=== PATIENT | female | born 1975 | race Caucasian/White ===

== ENCOUNTER 2018-08-26 09:25 | Outpatient (CLI) | payer BC, SELFPAY ==
[2018-08-26 16:00] LABS: FREE T4 1.63 ng/dL (0.76-1.46); TSH 0.05 uIU/mL (0.358-3.74)
[2018-08-27 16:51] LABS: T3,Free 3.9 pg/ml (2.8-5.3)
== END 2018-08-26 09:45 ==
PROVIDERS: PCP Student in an Organized Health Care Education/Training Program; Visit Provider Student in an Organized Health Care Education/Training Program
DX: E03.9 Hypothyroidism, unspecified (principal)
CPT/HCPCS: 36415; 84439; 84443; 84481

== ENCOUNTER 2018-09-23 00:14 | Outpatient (CLI) | payer BC, SELFPAY ==
--- NOTE | 2018-09-23 15:47 | DI.MAMMO_ITS ---
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 Comparison with prior examinations. Breast density D. No suspicious masses or microcalcifications are seen. There is no definite evidence of malignancy. IMPRESSION: Negative mammogram. Routine screening is recommended. Category I. MQSA ASSESSMENT OF FINDINGS: Negative. Category 1. Patient will receive a letter notifying them of these results. BI-RADS category D. The breasts are extremely dense, which lowers the sensitivity of mammography.
== END 2018-09-23 00:34 ==
PROVIDERS: PCP Student in an Organized Health Care Education/Training Program; Visit Provider Obstetrics & Gynecology Gynecology
DX: Z12.31 Encounter for screening mammogram for malignant neoplasm of breast (principal); Z80.3 Family history of malignant neoplasm of breast
CPT/HCPCS: 77063; 77067

== ENCOUNTER 2019-05-21 20:15 | Outpatient (REF) | payer BC, SELFPAY ==
[2019-05-21 20:10] LABS: TSH (W/Ref FT4) 2.54 uIU/mL (0.36-3.74)
[2019-05-22 16:58] LABS: T3,Free 3.2 pg/ml (2.8-5.3)
[2019-05-22 17:13] LABS: T3, Total 91 ng/dl (97-169)
[2019-05-23 13:33] LABS: FREE T4 1.42 ng/dL (0.76-1.46)
== END 2019-05-21 20:35 ==
LOC: LBN 20:15
PROVIDERS: Family Medicine; PCP Student in an Organized Health Care Education/Training Program; Visit Provider Student in an Organized Health Care Education/Training Program
DX: E03.9 Hypothyroidism, unspecified (principal); E05.00 Thyrotoxicosis with diffuse goiter without thyrotoxic crisis or storm; Z92.3 Personal history of irradiation
CPT/HCPCS: 84439; 84443; 84480; 84481

== ENCOUNTER 2019-07-21 12:42 | Outpatient (CLI) | payer BC, SELFPAY ==
--- NOTE | 2019-07-21 15:30 | DI.RAD_ITS ---
EXAM: XR KNEE RT 4V AP,LAT,CHARISSA,PAT INDICATION: knee pain M25.561. COMPARISON: No exams were available for comparison TECHNIQUE: 2D digital imaging was performed. FINDINGS: There is spurring of the medial femoral tibial joint and mild joint space narrowing. The lateral fe moral tibial joint space is well maintained. There is spurring at the articular aspect of the patell a and narrowing of lateral patellofemoral joint of moderate degree. No joint effusion is visible. IMPRESSION: Moderate degenerative changes of the medial femoral tibial joint and lateral patellofemoral joint.
--- NOTE | 2019-07-21 15:30 | DI.RAD_ITS ---
EXAM: XR KNEE LT 4V AP,LAT,CHARISSA,PAT INDICATION: knee pain M25.562. COMPARISON: No exams were available for comparison TECHNIQUE: 2D digital imaging was performed. FINDINGS: There is gaud-wf-kwmtllru narrowing of the of the patellofemoral joint and mild periarticular spurri ng. No joint effusion is seen. There is mild narrowing of the medial femoral tibial joint space. IMPRESSION: Moderate degenerative changes of the patellofemoral joint.
== END 2019-07-21 13:02 ==
PROVIDERS: PCP Student in an Organized Health Care Education/Training Program; Visit Provider Student in an Organized Health Care Education/Training Program
DX: M25.561 Pain in right knee (principal); M25.562 Pain in left knee; M17.0 Bilateral primary osteoarthritis of knee
CPT/HCPCS: 73564

== ENCOUNTER 2019-10-16 08:48 | Outpatient (CLI) | payer BC, SELFPAY ==
[2019-10-16 09:15] LABS: HCT 39.7 % (36.0-46.0); HGB 13.2 g/dL (12.0-15.5); Mean Corp. HGB Concentration 33.2 g/dL (32.0-36.0); Mean Corpuscular Volume 96.4 fL (80-95); Mean Platelet Volume 9.8 fL (8.0-11.0); Platelet Count 314 x1000/uL (130-400); RBC 4.12 m/cumm (4.00-5.20); RBC Distribution Width 11.9 % (11.7-14.6); White Blood Cell Count 6.52 k/cumm (4.4-10.8)
[2019-10-16 10:20] LABS: ALT 19 U/L (14-59); AST 14 U/L (15-37); Albumin 3.8 g/dL (3.4-5.0); Alkaline Phosphatase 55 U/L (46-116); Anion Gap 4.7 mmol/L (3-11); BUN 15 mg/dL (7-18); Bilirubin, Total 0.5 mg/dL (0.2-1.0); CO2 29.3 mmol/L (21.0-32.0); Chloride 105 mmol/L (98-107); Glucose 89 mg/dL (74-106); Potassium 4.5 mmol/L (3.5-5.1); Sodium 139 mmol/L (136-145); TSH (W/Ref FT4) 2.35 uIU/mL (0.36-3.74)
[2019-10-18 17:44] LABS: FREE T4 1.28 ng/dL (0.76-1.46)
== END 2019-10-16 09:08 ==
PROVIDERS: PCP Student in an Organized Health Care Education/Training Program; Visit Provider Student in an Organized Health Care Education/Training Program
DX: E86.0 Dehydration (principal); R53.83 Other fatigue; Z79.1 Long term (current) use of non-steroidal anti-inflammatories (NSAID); Z83.3 Family history of diabetes mellitus; E03.9 Hypothyroidism, unspecified; E05.00 Thyrotoxicosis with diffuse goiter without thyrotoxic crisis or storm; H83.09 Labyrinthitis, unspecified ear; Z86.2 Personal history of diseases of the blood and blood-forming organs and certain disorders involving the immune mechanism
CPT/HCPCS: 36415; 80053; 85027; 84436; 84439; 84443

== ENCOUNTER 2019-11-20 01:44 | Outpatient (CLI) | payer BC, SELFPAY ==
--- NOTE | 2019-11-20 15:30 | DI.MAMMO_ITS ---
EXAM: MG MAMMO SCREENING CLINICAL HISTORY: screening TECHNIQUE: Bilateral full field digital CC and MLO mammographic images were obtained with 3D tomosyn thesis and utilizing computer aided detection (CAD). COMPARISON: 2011 to 2018 FINDINGS: Masses/Architectural Distortion: None seen. Microcalcifications: No suspicious pleomorphic-type are seen. Skin Thickening/Nipple Retraction: None. IMPRESSION: 1. No significant interval change with no specific features of malignancy noted. 2. Unless there is more urgent need, screening mammography is recommended, as per [place] [employer] guidelines. BI-RADS Cat 1 - Negative Breast Density - Category D - Extremely dense The mammogram demonstrates the patient's breast tissue is dense. Dense breast tissue is very common a nd is not abnormal but dense breast tissue can make it harder to find cancer on a mammogram. Also, de nse breast tissue may increase their breast cancer risk. This information about the result of the [facility] mogram report was provided to the patient to raise their awareness. Use this report when you speak wi th the patient about their risks for breast cancer, which includes their family history. At that time , you may recommend for more screening tests (Ultrasound or MRI) as they might be useful based on the ir risk. A negative radiographic report should not delay biopsy if a dominant or clinically suspicious mass is present. Up to ten percent of cancers are not identified on mammography. A negative report may reinforce clinical impression. Adenosis and dense breasts may obscure an underlying neoplasm. False positive reports average 6 to 10%. Patient will receive a letter notifying them of these results.
== END 2019-11-20 02:04 ==
PROVIDERS: PCP Student in an Organized Health Care Education/Training Program; Visit Provider Nurse Practitioner Women's Health
DX: Z12.31 Encounter for screening mammogram for malignant neoplasm of breast (principal)
CPT/HCPCS: 77063; 77067

== ENCOUNTER 2020-04-07 02:23 | Outpatient (CLI) | payer BC, SELFPAY ==
--- NOTE | 2020-04-07 08:30 | DI.US_ITS ---
EXAM: US BREAST RT LIMITED CLINICAL HISTORY: localized pain/tenderness @ outer right breast, ? mass, n64.4 TECHNIQUE: Ultrasound right breast performed using standard protocol. COMPARISON: No exams were available for comparison FINDINGS: No solid or cystic masses, hypoechoic foci, areas of abnormal shadowing, or areas of skin thickening in the area of pain as described by the patient. IMPRESSION: No sonographically suspicious finding. DATA REPOSITORY:
== END 2020-04-07 02:43 ==
PROVIDERS: PCP Student in an Organized Health Care Education/Training Program; Visit Provider Student in an Organized Health Care Education/Training Program
DX: N64.4 Mastodynia (principal)
CPT/HCPCS: 76642

== ENCOUNTER 2020-08-31 02:58 | Outpatient (CLI) | payer BC, SELFPAY ==
[2020-08-31 16:44] LABS: FREE T4 1.42 ng/dL (0.76-1.46)
[2020-08-31 16:48] LABS: TSH 0.17 uIU/mL (0.36-3.74)
[2020-08-31 21:41] LABS: T3, Total 125 ng/dL (97-169)
== END 2020-08-31 03:18 ==
PROVIDERS: PCP Student in an Organized Health Care Education/Training Program; Visit Provider Student in an Organized Health Care Education/Training Program
DX: E03.9 Hypothyroidism, unspecified (principal); E05.00 Thyrotoxicosis with diffuse goiter without thyrotoxic crisis or storm; G47.9 Sleep disorder, unspecified; F41.9 Anxiety disorder, unspecified
CPT/HCPCS: 36415; 84439; 84443; 84480

== ENCOUNTER 2020-10-25 16:13 | Outpatient (REF) | payer BC, SELFPAY ==
--- NOTE | 2020-10-25 16:00 | PAPFT_PTH ---
PATIENT: Valery Giles LOC: [facility] U#:[id number] AGE/SX: 45/F ROOM: RE10/25/[address]: BRENNEN Walker : 1975 BED: DIS: 10/25/2020 SPEC #: [id number] RECD: 10/25/20 17:51 STATUS: VASQUEZ REQ #: [id number] MICHELLE: 10/25/20 16:[address]: Nikole Gamez DEPT: [facility] Cytology RECD BY: Renu Mosley ENTERED: 10/25/20 17:52 SP TYPE: PAPFT OTHR DR: Virginia Lauren, Tissues: 1 - CX/ENDOCX FOR PAP SMEARS Procedures: PAP THIN PREP/UVM Screening HPV DNA PROBE Comments: [id number]
== END 2020-10-25 16:14 | disposition home or self-care (01) ==
LOC: LBN 16:13
PROVIDERS: PCP Student in an Organized Health Care Education/Training Program; Visit Provider Nurse Practitioner Family
DX: Z12.4 Encounter for screening for malignant neoplasm of cervix (principal); Z11.51 Encounter for screening for human papillomavirus (HPV)
CPT/HCPCS: 88142; 87624

== ENCOUNTER 2020-11-22 01:59 | Outpatient (CLI) | payer BC, SELFPAY ==
--- NOTE | 2020-11-22 15:22 | DI.MAMMO_ITS ---
EXAM: MG MAMMO SCREENING CLINICAL HISTORY: screening. TECHNIQUE: Bilateral full field digital CC and MLO mammographic images were obtained with 3D tomosyn thesis and utilizing computer aided detection (CAD). COMPARISON: 2011 through 2019 FINDINGS: Masses/Architectural Distortion: None seen. Microcalcifications: No suspicious pleomorphic-type are seen. Skin Thickening/Nipple Retraction: None. IMPRESSION: 1. No significant interval change with no specific features of malignancy noted. 2. Unless there is more urgent need, annual screening mammography is recommended, as per [place] [employer] guidelines. BI-RADS Category 1-negative Breast Density - Category D - extremely dense Breast Density Category D: The mammogram demonstrates the patient's breast tissue is dense. Dense wilson ast tissue is very common and is not abnormal but dense breast tissue can make it harder to find canc er on a mammogram. Also, dense breast tissue may increase their breast cancer risk. This information about the result of the mammogram report was provided to the patient to raise their awareness. Use th is report when you speak with the patient about their risks for breast cancer, which includes their f amily history. At that time, you may recommend for more screening tests (Ultrasound or MRI) as they m ight be useful based on their risk. A negative radiographic report should not delay biopsy if a dominant or clinically suspicious mass is present. Up to ten percent of cancers are not identified on mammography. A negative report may reinforce clinical impression. Adenosis and dense breasts may obscure an underlying neoplasm. False positive reports average 6 to 10%.
== END 2020-11-22 02:19 ==
PROVIDERS: PCP Student in an Organized Health Care Education/Training Program; Visit Provider Nurse Practitioner Family
DX: Z12.31 Encounter for screening mammogram for malignant neoplasm of breast (principal)
CPT/HCPCS: 77063; 77067

== ENCOUNTER 2020-12-29 03:16 | Outpatient (CLI) | payer BC, SELFPAY ==
[2020-12-29 16:11] LABS: TSH (W/Ref FT4) 1.96 uIU/mL (0.36-3.74)
[2020-12-31 17:17] LABS: T3,Free 3.3 pg/mL (2.8-5.3)
[2021-01-02 18:21] LABS: FREE T4 1.43 ng/dL (0.76-1.46)
== END 2020-12-29 03:17 | disposition home or self-care (01) ==
LOC: LBO 03:17
PROVIDERS: PCP Student in an Organized Health Care Education/Training Program; Visit Provider Student in an Organized Health Care Education/Training Program
DX: E03.9 Hypothyroidism, unspecified (principal); E05.00 Thyrotoxicosis with diffuse goiter without thyrotoxic crisis or storm; R53.83 Other fatigue; F33.9 Major depressive disorder, recurrent, unspecified
CPT/HCPCS: 36415; 84439; 84443; 84481

== ENCOUNTER 2021-05-16 03:09 | Outpatient (CLI) | payer BC, SELFPAY ==
[2021-05-16 13:22] LABS: Source Nasal/Nares
[2021-05-16 16:07] LABS: COVID-19 PCR Negative (Negative)
== END 2021-05-16 03:10 | disposition home or self-care (01) ==
LOC: LBO 03:10
PROVIDERS: PCP Student in an Organized Health Care Education/Training Program; Visit Provider Surgery
DX: Z20.822 Contact with and (suspected) exposure to COVID-19 (principal); Z01.818 Encounter for other preprocedural examination
CPT/HCPCS: 87635

== ENCOUNTER 2021-05-17 08:53 | Day surgery (SDC) | payer BC, SELFPAY ==
[2021-05-17 09:18] VITALS: BP 114/72; PULSE 70; RESP 16; TEMP 36.8; O2SAT 98
--- NOTE | 2021-05-17 09:41 | W.ANESPRE ---
General Info Date of Service Date Performed: 05/17/21 Height: 5 ft 4 in Weight: 61 kg Body Mass Index (BMI): 23.1 Surgical Procedure: Operation Date: 05/17/21 10:05 Proposed Procedures Side Surgeon zander Dutta, Meds Allergies and Home Medications Allergies Allergy/AdvReac Type Severity Reaction Status Date / Time No Known Allergies Allergy Verified 05/17/21 09:12 Home Medication Medication Instructions Recorded omalizumab [Xolair] 150 mg SQ 28 days vial 04/25/18 cetirizine 10 mg tablet 20 mg PO DAILY tab 12/24/18 epinephrine 0.3 mg/0.3 mL 0.3 mg IM ONCE 04/08/20 injection, auto-injector ibuprofen 600 mg tablet 600 mg PO TID #60 tab 10/28/20 docusate sodium 100 mg capsule 100 mg PO DAILY #90 cap 02/09/21 norethindrone acetate 1 mg-ethinyl 1 tab PO DAILY #63 tab 04/20/21 estradiol 20 mcg tablet levothyroxine 112 mcg tablet 112 mcg PO DAILY #90 tab 05/06/21 bisacodyl 5 mg tablet,delayed 5 mg PO ONCE #4 tab 05/10/21 release lorazepam 0.5 mg tablet 0.5 mg PO PRN #20 tab MDD 2 tabs 05/10/21 polyethylene glycol 3350 17 238 g PO ONCE #238 g 05/10/21 gram/dose oral powder Current Visit Medications: Current Medications Generic Name Dose Route Start Last Admin Trade Name Freq PRN Reason Stop Dose Admin Hyoscyamine Sulfate 0.125 mg 05/16/21 21:45 Hyoscyamine 0.125 Mg Sl/Oral/Chew SL DIRECTED PRN Ringer's Solution 1,000 mls @ 80 mls/hr 05/17/21 06:00 IV 06/15/21 23:59 [facility] IV Miscellaneous Supplies 1 each 05/17/21 06:00 Iv Access IV 06/15/21 23:59 DIRECTED RIO Ondansetron HCl 4 mg 05/16/21 21:45 Ondansetron 4 Mg/2 Ml Vial IVP Q4H PRN PRN Nausea / Vomiting Sodium Chloride 0 ml 05/17/21 06:00 Normal Saline Flush 10 Ml Syr IV 06/15/21 23:59 PRN PRN Sodium Chloride 0 ml 05/17/21 06:00 Normal Saline 10 Ml Vial IJ 06/15/21 23:59 DIRECTED PRN Sterile Water 0 ml 05/17/21 06:00 Water,Injection,Sterile 10 Ml Vial IJ 06/15/21 23:59 DIRECTED PRN PFSH Active Problems Active Problems: Problem Status Onset Code Constipation K59.00 Abdominal bloating R14.0 Breast tenderness N64.4 Mood swing R45.86 Menopausal symptoms N95.1 Chronic urticaria L50.8 Major depressive disorder, recurrent, unspecified F33.9 Pectoralis muscle strain S29.011A Breast pain N64.4 Insomnia G47.00 Knee pain, bilateral M25.561, M25.562 Varicose veins of right lower extremity with pain 04/23/18 I83.811 Varicose veins of both lower extremities with pain 04/23/18 I83.813 Postnasal drip 06/22/14 R09.82 Panic attack 04/23/18 F41.0 Oral contraceptive use 02/06/17 Z30.41 Hypothyroidism 05/29/14 E03.9 Graves' disease 04/23/18 E05.00 Fatigue 04/23/18 R53.83 Family history of breast cancer in female 01/25/16 Z80.3 Encounter for gynecological examination 02/06/17 Z01.419 Other disorders of Eustachian tube 09/08/13 H69.80 Other specified contraceptive management 12/17/12 Z30.8 Anxiety 04/23/18 F41.9 Angioedema 04/25/18 T78.3XXA Allergic rhinitis 06/22/14 J30.9 Medical History Medical History Abdominal bloating Breast pain Breast tenderness rt breast, seems ~ bruise within breast tissue (vs pec mm) Constipation Hypothyroid Insomnia Hx Trazadone .. stopped 2' H/A. 02/2020 Menopausal symptoms Pectoralis muscle strain Probable Dx, but radiation of pain is atypical. [ ] PT, US Postnasal drip (06/22/14) Varicose veins of right lower extremity with pain (04/23/18) Surgical History Surgical History section protracted labor. Tobacco Smoking/Tobacco Use Status: Never Alcohol Alcohol Intake: current Alcohol intake frequency: holidays/special occasions only Substance Use Substance use: Never Substance use type: does not use Prental History History 2 Para Hx # Term Pregnancies 1 Multiple births Hx # Pregnancies Ectopic pregnancies AB induced Hx Number of Living Children AB spontaneous Vital Signs and Lab Results Vital Signs Most Recent Vital Signs in EMR: Most Recent Vital Signs Temp Pulse Resp BP Pulse Ox 36.8 C 70 16 114/72 98 05/17/21 09:18 05/17/21 09:18 05/17/21 09:18 05/17/21 09:18 05/17/21 09:18 Lab Results Blood Type / Crossmatch: No Data to Display Complete Blood Count: No Data to Display Complete Metabolic Panel: No Data to Display Liver Function Panel: No Data to Display Coagulation Panel: No Data to Display Cardiac Panel: No Data to Display Arterial Blood Gas: No Data to Display Venous Blood Gas: No Data to Display Pancreas Panel: No Data to Display Thyroid Panel: No Data to Display Infectious Disease: Coronavirus (COVID-19)(PCR) Negative (Negative) 05/16/21 08:45 05/16/21 Coronavirus 2019 Source Nasal/Nares 05/16/21 08:45 05/16/21 Blood Cultures: No Data to Display Toxicology Panel: No Data to Display Panel: No Data to Display Anesthesia Assessment and Plan Anesthesia History Personal History: No History of Anesthesia Complications Family History: No Family History of Anesthesia Complications Exercise Tolerance Exercise Tolerance: Metabolic Equivalents>4 Pertinent Negatives Pertinent Negatives: No Symptoms of GERD Cardiac & Pulmonary Exam Cardiac Exam: Normal S1/S2 Heart Sounds Pulmonary Exam: Clear Bilateral Breath Sounds Airway Exam Known Difficult Airway: No Mallampati Class: 2 Mouth Opening: Normal (> 3cm) Thyromental Distance: Greater than 3 cm Neck Range of Motion: Full ROM Neck Circumference: Normal Teeth Condition: Normal Dentition ASA Classification ASA Score: ASA 2 Emergency Case?: No NPO Status NPO Status: NPO Clears >2 hours, Solids >8 hours Status Status: Negative HCG Anesthesia Plan Resuscitation Status: Full Code Anesthesia Technique: General Anesthesia Airway Planned: Natural Airway Monitors Used: Standard Monitors
[2021-05-17] MEDS: Lactated Ringers 1,000 ML 80 ML IV (09:42)
[2021-05-17 10:31] VITALS: BMI 23.1
--- NOTE | 2021-05-17 10:50 | BOWEL_PTH ---
PATIENT: Valery Giles LOC: [facility] U#:[id number] AGE/SX: 45/F ROOM: RE05/17/[address]: Breanna Dutta : 1975 BED: DIS: 05/17/2021 SPEC #: [id number] RECD: 05/17/21 12:39 STATUS: VASQUEZ REQ #: [id number] MICHELLE: 05/17/21 10:[address]: Breanna Dutta DEPT: Surgical Specimen RECD BY: Renu Mosley ENTERED: 05/17/21 12:40 SP TYPE: Bowel OTHR DR: Virginia Lauren DO Tissues: 1 - BIOPSY BOWEL 2 - BIOPSY BOWEL 3 - BIOPSY BOWEL 4 - BIOPSY BOWEL Procedures: GROSS AND MICRO LEVEL 4 Comments: [id number]
[2021-05-17 11:04] VITALS: BP 107/72; PULSE 70; RESP 14; TEMP 37; O2SAT 100
--- NOTE | 2021-05-17 11:07 | W.COLOREPORT ---
Date of service: 05/17/21 Time of Service: 11:07 Colonoscopy Report Date of procedure: 05/17/21 Pre-op diagnosis general: family hx of crc Post-op diagnosis procedure note: other (IBS-C) Procedure: bx cold forcep Surgeon: Breanna Dutta Anesthesia Type: General LMA/ETT Estimated blood loss (mL): 1 Pathology: other Complications: None Disposition: same day Prep: Miralax/Dulcolax Retraction Time: 9 Procedure Description: After informed consent was obtained the patient was taken to the procedure room and placed in a left decubitous position. Monitors were applied and a time out was done. The patients name, date of , procedure, allergies to medications and metal in their body was reviewed. The patient was then sedated. Once sedated and comfortable a rectal exam was done. External exam was normal. Internal exam revealed a normal sphincter tone and no palpable masses. The scope was then introduced and retrofelexed. no internal hemorrhoids were identified. The scope was then advanced to the cecum w/ difficulty. The TI and appendiceal orifice were identified. The prep was good. The scope was then slowly retracted over 9 minutes back into the rectum. There are no polyps/AVM's or diverticula. The scope was removed and the patient was woken up and taken back to Same day surgery in stable condition. there are no polyps, AVMs, or diverticula visualized today. Biopsies were taken of the cecum, showed signs of chronic laxative use. Bx are taken at cecum, 50 cm, & rectum w/ a cold biting forcepts. All specimens are retrieved and no bleeding noted. There are no anatomic abnormalities. The patient tolerated the procedure well and there were no immediate complications. Follow up: The patient should follow up in 5 years unless they develop changes in bowel habits or other new gastrointestinal complaints.
--- NOTE | 2021-05-17 11:08 | PDOC.DSDIS_ITS ---
Discharge Plan Disposition Patient Disposition: HOME Condition: Good Discharge Details Reason For Visit: colon scope Attending Provider: Breanna Dutta Primary Care Provider: Virginia Lauren Home Meds and New Rx's Prescriptions: Continued ibuprofen 600 mg tablet 600 mg PO TID Qty: 60 RF: 1 lorazepam 0.5 mg tablet 0.5 mg PO PRN MDD 2 tabs Qty: 20 RF: 1 docusate sodium [Colace] 100 mg capsule 100 mg PO DAILY Qty: 90 RF: 0 Xolair 150 MG recon soln 150 mg SQ 28 days RF: 0 cetirizine [Zyrtec] 10 mg tablet 20 mg PO DAILY RF: 0 epinephrine [EpiPen] 0.3 mg/0.3 mL auto-injector 0.3 mg IM ONCE RF: 0 norethindrone ac-eth estradiol 1-20 mg-mcg tablet 1 tab PO DAILY Qty: 63 RF: 4 levothyroxine 112 mcg tablet 112 mcg PO DAILY Qty: 90 RF: 0 Discontinued bisacodyl [Dulcolax (bisacodyl)] 5 mg tablet,delayed release (DR/EC) 5 mg PO ONCE Qty: 4 RF: 0 polyethylene glycol 3350 17 gram/dose powder 238 g PO ONCE Qty: 238 RF: 0 Discharge Instructions Additional Instructions: DSU Colonoscopy Post- Op Instructions Instructions for Everyone who is given Anesthesia: For your safety, please do the following for the next twenty-four (24) hours: *Do Not operate a motor vehicle (car, truck, motorcycle, etc.) *Do Not drink alcoholic beverages or use any recreational drugs for the first 24 hours or while taking pain medications. The medications in your body may have a reaction that can be dangerous. *Do Not make any important decisions or sign any important papers. Findings: normal colon IBS-C Follow up: repeat scope in 5yrs time 1. No lifting over 20 pounds or strenuous activity for the first 24 hours after your procedure. After 24 hours there are no restrictions on your activity but you may feel fatigued for a few days. 2. After you arrive home you may have a light meal and return to your normal diet as you can tolerate it without feeling sick to your stomach. 3. You may have a bloated, gaseous feeling in your belly (abdomen) after a colonoscopy. Passing gas and belching will help. Walking or lying down on your left side with your knees flexed may relieve the discomfort. Call the office at [phone] (Office) or [phone] (Hospital) right away if you notice any of the following: a.Vomiting of blood or ?coffee ground stools?. b.Rectal bleeding 1Tbsp, blood clots or continuous bleeding. c.Severe belly (abdominal) pain. d.A hard distended belly (abdomen) and an inability to pass gas. 4. Please don?t expect to have a normal BM (bowel movement) for 2-3 days after your procedure. 5. If there are questions regarding the findings of your procedure, please contact your doctor 6. If you are unable to contact your doctor with a problem, contact the hospital at [phone]. 7. Continue all your regular medications unless directed otherwise. I understand the above instructions and have no questions. Signature of Patient or Adult Escort Name of Responsible Adult Escort Signature of Nurse Date/Time Activity:: see above Diet:: see above Discharge Orders Discharge Orders: Discharge Order (Routine); Ordered 05/16/21 Ordered By: Breanna Dutta DS: Diagnosis Discharge Diagnosis (1) Irritable bowel syndrome with constipation: Status: Acute
--- NOTE | 2021-05-17 11:08 | W.ANESPOSTOP ---
Postoperative Evaluation Date, Time and Location Date Performed: 05/17/21 Time Performed: 11:09 Patient Location: PACU Vital Signs Most Recent Imported Vital Signs: Most Recent Vital Signs Temp Pulse Resp BP Pulse Ox 36.8 C 70 16 114/72 98 05/17/21 09:18 05/17/21 09:18 05/17/21 09:18 05/17/21 09:18 05/17/21 09:18 Most Recent Manually Entered Vital Signs: Adult Blood Pressure: 107/72 Heart Rate: 65 Respirations: 14 Oxygen Saturation (%): 98 Temperature (C): 37 C Pain Score (0-10 Scale): 0 Pain Score Most Recent Pain Score: Most Recent Pain Score Pain Level 0 05/17/21 09:18 Assessment Mental Status: Awake (Alert & Oriented to Patient Baseline) Airway and Respiratory Function: Patent airway with normal (patient baseline) respiratory exam Cardiovascular Function: Hemodynamically Stable Hydration Status: Adequately Hydrated Nausea & Vomiting: No Nausea or Vomiting Pain: Pt. Denies Any Pain Peripheral Nerve Block: Patient did not receive a nerve block
[2021-05-17 11:10] VITALS: BP 107/72; PULSE 65; RESP 14; TEMPC 37; O2SAT 98
[2021-05-17 11:32] VITALS: BP 98/65; PULSE 57; RESP 16; TEMP 36.8; O2SAT 100
== END 2021-05-17 12:18 | disposition home or self-care (01) ==
PROVIDERS: PCP Student in an Organized Health Care Education/Training Program; Visit Provider Surgery
PROC: 0DJD8ZZ Inspection of Lower Intestinal Tract, Via Natural or Artificial Opening Endoscopic (ICD-10-PCS; CPT 45378; principal; 2021-05-17 10:00)
DX: Z12.11 Encounter for screening for malignant neoplasm of colon (principal); Z80.0 Family history of malignant neoplasm of digestive organs; K58.1 Irritable bowel syndrome with constipation
CPT/HCPCS: 45380; 88305; J2001

== ENCOUNTER 2021-06-02 03:10 | Outpatient (CLI) | payer BC, SELFPAY ==
[2021-06-02 17:11] LABS: ALT 25 U/L (14-59); AST 15 U/L (15-37); Alkaline Phosphatase 58 U/L (46-116); Anion Gap 8.9 mmol/L (3-11); BUN 11 mg/dL (7-18); Bilirubin, Total 0.2 mg/dL (0.2-1.0); CO2 26.1 mmol/L (21.0-32.0); CREATININE 0.7 mg/dL (0.55-1.02); Calcium 9.1 mg/dL (8.5-10.1); Chloride 105 mmol/L (98-107); Glucose 97 mg/dL (74-106); Potassium 3.9 mmol/L (3.5-5.1); Sodium 140 mmol/L (136-145); TSH (W/Ref FT4) 5.64 uIU/mL (0.36-3.74); Total Protein 7.5 g/dL (6.4-8.2)
[2021-06-02 17:28] LABS: FREE T4 1.19 ng/dL (0.76-1.46)
[2021-06-02 17:41] LABS: Calculated LDL 82 mg/dL (<100); Cholesterol 188 mg/dL (<200); HDL Cholesterol 68 mg/dL (40-60); Triglyceride 193 mg/dL (<150)
[2021-06-03 16:46] LABS: T3,Free 2.5 pg/mL (2.8-5.3)
== END 2021-06-02 03:11 | disposition home or self-care (01) ==
LOC: LBO 03:10
PROVIDERS: PCP Student in an Organized Health Care Education/Training Program; Visit Provider Student in an Organized Health Care Education/Training Program
DX: Z00.00 Encounter for general adult medical examination without abnormal findings (principal); E03.9 Hypothyroidism, unspecified; R53.83 Other fatigue; E46 Unspecified protein-calorie malnutrition; E86.0 Dehydration; R14.0 Abdominal distension (gaseous); K59.00 Constipation, unspecified; Z13.220 Encounter for screening for lipoid disorders
CPT/HCPCS: 36415; 80053; 80061; 83735; 84439; 84443; 84481

== ENCOUNTER 2021-06-14 04:24 | Outpatient (CLI) | payer BC, SELFPAY ==
[2021-06-14 16:43] LABS: Abs Immature Grans 0.04 10^3/uL (0.0-0.06); Absolute Eosinophil Count 1.37 10^3/uL (0.0-0.7); Absolute Monocyte Count 0.58 10^3/uL (0.1-0.8); Absolute Neutrophil Count 5.74 10^3/uL (1.2-6.7); Eosinophils % 13.1; HCT 38.2 % (36.0-46.0); HGB 12.8 g/dL (11.2-15.7); Immature Grans % 0.4; Lymphocytes % 24.9; MCHC 33.5 % (32.0-36.0); MCV 98.5 fL (80-95); MPV 10.3 fL (8.0-11.0); Monocytes % 5.6; Nucleated RBC 0 %; Platelet Count 271 10^3/uL (130-400); RBC 3.88 10^6/uL (3.93-5.22); RDW 11.6 % (11.7-14.6); RDW-SD 42.1 fL; WBC 10.43 10^3/uL (4.4-10.8)
[2021-06-14 18:21] LABS: Folate 19.2 ng/mL (8.6-20.0); Magnesium 1.9 mg/dL (1.8-2.4); TSH 9.82 uIU/mL (0.36-3.74); Vitamin B12 612 pg/mL (193-986)
[2021-06-14 18:37] LABS: FREE T4 0.98 ng/dL (0.76-1.46)
[2021-06-15 17:26] LABS: T3,Free 1.8 pg/mL (2.8-5.3)
[2021-06-15 17:43] LABS: T3, Total 96 ng/dL (97-169)
[2021-06-16 09:37] LABS: IgA 246 mg/dL (85-499); IgG 1310 mg/dL (610-1,616); IgM 67 mg/dL (35-242)
[2021-06-17 09:45] LABS: DHEA Sulfate 107 ug/dL (75-410)
[2021-06-17 10:00] LABS: IgE 77 IU/mL (<158)
[2021-06-21 16:00] LABS: Histamine Plasma 0.84 ng/mL (0-1.0)
== END 2021-06-14 04:25 | disposition home or self-care (01) ==
LOC: LBO 04:25
PROVIDERS: PCP Student in an Organized Health Care Education/Training Program; Visit Provider Naturopath
DX: R53.83 Other fatigue (principal); G47.00 Insomnia, unspecified
CPT/HCPCS: 36415; 82627; 82784; 82607; 82746; 82785; 83088; 83735; 84207; 84439; 84443; 84480; 84481; 85025

== ENCOUNTER 2021-06-23 03:17 | Outpatient (CLI) | payer BC, SELFPAY ==
[2021-06-23 09:21] LABS: Vitamin D 25 Total 49.2 ng/mL (30-100)
[2021-06-28 12:22] LABS: Pyridoxal 5-Phosphate (PLP), P 8 mcg/L (5-50)
== END 2021-06-23 03:18 | disposition home or self-care (01) ==
LOC: LBO 03:17
PROVIDERS: PCP Student in an Organized Health Care Education/Training Program; Visit Provider Naturopath
DX: E55.9 Vitamin D deficiency, unspecified (principal); G47.00 Insomnia, unspecified; R53.83 Other fatigue; Z88.9 Allergy status to unspecified drugs, medicaments and biological substances
CPT/HCPCS: 36415; 82306; 84207

== ENCOUNTER 2021-06-28 01:02 | Outpatient (CLI) | payer BC, SELFPAY ==
--- NOTE | 2021-06-28 08:45 | DI.RAD_ITS ---
Exam(s) XR ABDOMEN FLAT UPRIGHT EXAM: XR ABDOMEN FLAT UPRIGHT CLINICAL HISTORY: r/o colon path; eval constipation,ABD BLOATING,K59.00,R14.0. TECHNIQUE: 2D digital imaging was performed. COMPARISON: No exams were available for comparison FINDINGS: Supine and upright views of the abdomen reveal no evidence of bowel obstruction or free intraperitone al air. Phleboliths are noted in left side of the pelvis. The stomach is not distended. Moderate i ncreased amount of fecal material is noted throughout the colon. There is no evidence of fecal recta l impaction. No abnormal calcifications over the kidneys. Regional bones appear unremarkable. No s coliosis. Visualized lung bases are clear. IMPRESSION: DATA REPOSITORY: RADIATION DOSE DELIVERED:
== END 2021-06-28 01:22 ==
PROVIDERS: PCP Student in an Organized Health Care Education/Training Program; Visit Provider Student in an Organized Health Care Education/Training Program
DX: K59.00 Constipation, unspecified (principal); R14.0 Abdominal distension (gaseous); I87.8 Other specified disorders of veins
CPT/HCPCS: 74019

== ENCOUNTER 2021-08-22 03:06 | Outpatient (CLI) | payer BC, SELFPAY ==
[2021-08-22 10:01] LABS: FREE T4 1.33 ng/dL (0.76-1.46); TSH 9.83 uIU/mL (0.36-3.74)
[2021-08-22 17:23] LABS: T3,Free 3.7 pg/mL (2.8-5.3)
[2021-08-22 17:37] LABS: T3, Total 181 ng/dL (97-169)
== END 2021-08-22 03:07 | disposition home or self-care (01) ==
LOC: LBO 03:06
PROVIDERS: PCP Student in an Organized Health Care Education/Training Program; Visit Provider Student in an Organized Health Care Education/Training Program
DX: E03.9 Hypothyroidism, unspecified (principal); E05.00 Thyrotoxicosis with diffuse goiter without thyrotoxic crisis or storm
CPT/HCPCS: 36415; 84439; 84443; 84480; 84481

== ENCOUNTER 2021-10-03 02:16 | Outpatient (CLI) | payer BC, SELFPAY ==
[2021-10-03 10:00] LABS: TSH (W/Ref FT4) 1.03 uIU/mL (0.36-3.74)
[2021-10-04 20:12] LABS: Tissue Transglutaminase Ab IgA <1.2 U/mL
== END 2021-10-03 02:17 | disposition home or self-care (01) ==
LOC: LBO 02:16
PROVIDERS: Internal Medicine; PCP Student in an Organized Health Care Education/Training Program; Visit Provider Student in an Organized Health Care Education/Training Program
DX: E89.0 Postprocedural hypothyroidism (principal)
CPT/HCPCS: 36415; 83516; 84443

== ENCOUNTER 2021-10-18 02:14 | Outpatient (CLI) | payer BC, SELFPAY ==
[2021-10-27 17:34] LABS: Histamine Plasma 1.13 ng/mL (0-1.0)
== END 2021-10-18 02:15 | disposition home or self-care (01) ==
LOC: LBO 02:14
PROVIDERS: PCP Student in an Organized Health Care Education/Training Program; Visit Provider Naturopath
DX: L50.8 Other urticaria (principal)
CPT/HCPCS: 36415; 83088

== ENCOUNTER 2021-11-23 01:23 | Outpatient (CLI) | payer BC, SELFPAY ==
--- NOTE | 2021-11-23 08:00 | DI.MAMMO_ITS ---
Exam(s) MAMMO SCREENING EXAM: MAMMO SCREENING CLINICAL HISTORY: screening,annual, z12.39 TECHNIQUE: Mammograms were interpreted according to the usual protocol including computer analysis w [facility] CAD system, tomosynthesis and C-view imaging. COMPARISON: The breasts are heterogeneously dense. No dominant mass or clumped microcalcification i s identified in either breast. Current examination is compared with previous examinations including November 2020, there is a question of interval development of an area of architectural distortion and/or asymmetric density projected posteriorly in the central portion of left breast on CC view only. Add itional mammographic views of this area are requested to include CC spot compression view. Breast ul trasound recommended as well. No other significant change seen. IMPRESSION: Additional mammographic views left breast and left breast ultrasound requested as described above. BI-RADS Category 0 - Assessment Incomplete: Need additional imaging evaluation Breast Density - Category C - Heterogeneously dense
== END 2021-11-23 01:43 ==
PROVIDERS: PCP Student in an Organized Health Care Education/Training Program; Visit Provider Student in an Organized Health Care Education/Training Program
DX: Z12.31 Encounter for screening mammogram for malignant neoplasm of breast (principal); R92.8 Other abnormal and inconclusive findings on diagnostic imaging of breast
CPT/HCPCS: 77063; 77067

== ENCOUNTER 2021-12-14 02:10 | Outpatient (CLI) | payer BC, SELFPAY ==
--- NOTE | 2021-12-14 15:00 | DI.US_ITS ---
Exam(s) MG MAMMO SCREEN CALL BACK UNI US BREAST LT LIMITED EXAM: US BREAST LT LIMITED CLINICAL HISTORY: ARCHITECTURAL DISTORTION/ASYMMETRIC DENSITY CENTRAL PORTION LT BREAST TECHNIQUE: Ultrasound performed using standard protocol. COMPARISON: US US THYROID from 10/03/2021 FINDINGS: Additional mammographic views of the left breast and left breast ultrasound are interpreted in conjun ction. These examinations were obtained to evaluate questionable area of architectural distortion or asymmetric density of the posterior central portion of the breast seen on recent mammogram. Additio nal mammographic views fail to show a discrete mass but do show some question of minimal architectura l distortion. I would note that the patient relates history of recent ???fat injections??? into the breast for breast augmentation while in [place]. Breast ultrasound shows no significant mass, abscess, or fluid collection. IMPRESSION: No specific evidence of malignancy at this time. The questionable mammographic findings identified o n recent mammogram may be related to recent injection of fatty material into the breast. Follow-up u nilateral left breast mammogram requested in 6 months. BI-RADS Cat 3 - 6 month - Probably Benign Finding: Recommend follow-up imaging in 6 months Breast Density - Category C - Heterogeneously dense DATA REPOSITORY:
== END 2021-12-14 02:30 ==
PROVIDERS: PCP Student in an Organized Health Care Education/Training Program; Visit Provider Student in an Organized Health Care Education/Training Program
DX: R92.8 Other abnormal and inconclusive findings on diagnostic imaging of breast (principal)
CPT/HCPCS: 76642; 77063; 77067

== ENCOUNTER 2021-12-21 03:04 | Outpatient (CLI) | payer BC, SELFPAY ==
[2021-12-21 10:41] LABS: TSH (W/Ref FT4) 4.09 uIU/mL (0.36-3.74)
[2021-12-21 10:56] LABS: FREE T4 1.07 ng/dL (0.76-1.46)
[2021-12-21 22:05] LABS: T3,Free 2.6 pg/mL (2.8-5.3)
== END 2021-12-21 03:05 | disposition home or self-care (01) ==
LOC: LBO 03:04
PROVIDERS: PCP Student in an Organized Health Care Education/Training Program; Visit Provider Student in an Organized Health Care Education/Training Program
DX: E05.00 Thyrotoxicosis with diffuse goiter without thyrotoxic crisis or storm (principal)
CPT/HCPCS: 36415; 84439; 84443; 84481

== ENCOUNTER 2022-02-02 03:33 | Outpatient (CLI) | payer BC, SELFPAY ==
[2022-02-02 09:55] LABS: TSH (W/Ref FT4) 0.05 uIU/mL (0.36-3.74)
[2022-02-02 10:13] LABS: FREE T4 1.45 ng/dL (0.76-1.46)
[2022-02-03 16:29] LABS: Tissue Transglutaminase Ab IgA <1.2 U/mL
[2022-02-07 17:07] LABS: T3 (Triiodothyronine) Reverse 34 ng/dL (10-24)
== END 2022-02-02 03:34 | disposition home or self-care (01) ==
LOC: LBO 03:33
PROVIDERS: PCP Student in an Organized Health Care Education/Training Program; Visit Provider Student in an Organized Health Care Education/Training Program
DX: E03.9 Hypothyroidism, unspecified (principal); E05.00 Thyrotoxicosis with diffuse goiter without thyrotoxic crisis or storm; R79.89 Other specified abnormal findings of blood chemistry
CPT/HCPCS: 36415; 83516; 84439; 84443; 84482

== ENCOUNTER 2022-05-04 03:45 | Outpatient (CLI) | payer BC, SELFPAY ==
[2022-05-04 12:08] LABS: FREE T4 1.36 ng/dL (0.76-1.46); TSH 0.04 uIU/mL (0.36-3.74)
== END 2022-05-04 03:46 | disposition home or self-care (01) ==
LOC: LBO 03:46
PROVIDERS: PCP Student in an Organized Health Care Education/Training Program; Visit Provider Student in an Organized Health Care Education/Training Program
DX: E03.9 Hypothyroidism, unspecified (principal); E05.00 Thyrotoxicosis with diffuse goiter without thyrotoxic crisis or storm; R79.89 Other specified abnormal findings of blood chemistry
CPT/HCPCS: 36415; 84439; 84443; 84481

== ENCOUNTER 2022-06-22 02:21 | Outpatient (CLI) | payer BC, SELFPAY ==
[2022-06-22 16:15] LABS: FREE T4 1.15 ng/dL (0.76-1.46)
[2022-06-22 16:19] LABS: TSH (W/Ref FT4) 0.38 uIU/mL (0.36-3.74)
[2022-06-22 22:07] LABS: T3,Free 2.5 pg/mL (2.8-5.3)
== END 2022-06-22 02:22 | disposition home or self-care (01) ==
LOC: LBO 02:21
PROVIDERS: PCP Student in an Organized Health Care Education/Training Program; Visit Provider Student in an Organized Health Care Education/Training Program
DX: E03.9 Hypothyroidism, unspecified (principal); E05.00 Thyrotoxicosis with diffuse goiter without thyrotoxic crisis or storm; R79.89 Other specified abnormal findings of blood chemistry; F41.9 Anxiety disorder, unspecified
CPT/HCPCS: 36415; 84439; 84443; 84481

== ENCOUNTER 2022-10-03 03:02 | Outpatient (CLI) | payer BC, SELFPAY ==
[2022-10-03 13:57] LABS: Anion Gap 5.8 mmol/L (3-11); BUN 14 mg/dL (7-18); CO2 29.2 mmol/L (21.0-32.0); CREATININE 0.5 mg/dL (0.55-1.02); Calcium 9.3 mg/dL (8.5-10.1); Calculated LDL 82 mg/dL (<100); Chloride 103 mmol/L (98-107); Cholesterol 195 mg/dL (<200); Estimated GFR 117.07 (mL/min/1.73m2); Glucose 110 mg/dL (74-106); HDL Cholesterol 96 mg/dL (40-60); Magnesium 1.8 mg/dL (1.8-2.4); Potassium 3.8 mmol/L (3.5-5.1); Sodium 138 mmol/L (136-145); TSH (W/Ref FT4) 0.64 uIU/mL (0.36-3.74); Triglyceride 87 mg/dL (<150)
[2022-10-03 22:04] LABS: T3,Free 4.2 pg/mL (2.8-5.3)
== END 2022-10-03 03:03 | disposition home or self-care (01) ==
PROVIDERS: PCP Student in an Organized Health Care Education/Training Program; Visit Provider Student in an Organized Health Care Education/Training Program
DX: E03.9 Hypothyroidism, unspecified (principal); E05.00 Thyrotoxicosis with diffuse goiter without thyrotoxic crisis or storm; R79.89 Other specified abnormal findings of blood chemistry; E46 Unspecified protein-calorie malnutrition; E87.8 Other disorders of electrolyte and fluid balance, not elsewhere classified; K58.1 Irritable bowel syndrome with constipation; N95.1 Menopausal and female climacteric states; R14.0 Abdominal distension (gaseous)
CPT/HCPCS: 36415; 80048; 80061; 83735; 84443; 84481

== ENCOUNTER 2022-12-08 01:33 | Outpatient (CLI) | payer BC, SELFPAY ==
--- NOTE | 2022-12-08 08:15 | DI.MAMMO_ITS ---
Exam(s) MAMMO SCREENING EXAM: MAMMO SCREENING CLINICAL HISTORY: screening,Z12.39 TECHNIQUE: Mammograms were interpreted according to the usual protocol including computer analysis w [facility] CAD system, tomosynthesis and C-view imaging. COMPARISON: 2013 through 2021 FINDINGS: The breasts are composed of heterogeneously dense fibroglandular densities, Breast Density category C . Right breast: No suspicious masses or suspicious microcalcifications are seen. No skin thickening or abnormal axillary lymph nodes are seen. There has been no significant change from prior exams. Left breast: Interval development of a cluster of calcifications some surrounding architectural distortion in the posterior medial left breast. This at least symmetric densities seen more medially in the posterior left breast. Spot magnification views of the calcifications are recommended. Spot compression view of the medial density recommended. Also and also recommended. IMPRESSION: BI-RADS Category 0 - Assessment Incomplete: Need additional imaging evaluation Breast Density Category C, heterogeneously Dense. The mammogram demonstrates the patient's breast tissue is dense. Dense breast tissue is very common a nd is not abnormal but dense breast tissue can make it harder to find cancer on a mammogram. Also, de nse breast tissue may increase breast cancer risk. This information about the result of the mammogram report was provided to the patient to raise their awareness. Use this report when you speak with the patient about their risks for breast cancer, which includes their family history. At that time, you may recommend additional screening tests (Ultrasound or MRI) as they might be useful based on their r isk. A negative radiographic report should not delay biopsy if a dominant or clinically suspicious mass is present. Up to ten percent of cancers are not identified on mammography. A negative report may reinforce clinical impression. Adenosis and dense breasts may obscure an underlying neoplasm. False positive reports average 6 to 10%.
== END 2022-12-08 01:53 ==
LOC: DI 01:33
PROVIDERS: PCP Student in an Organized Health Care Education/Training Program; Visit Provider Student in an Organized Health Care Education/Training Program
DX: Z12.31 Encounter for screening mammogram for malignant neoplasm of breast (principal); R92.8 Other abnormal and inconclusive findings on diagnostic imaging of breast
CPT/HCPCS: 77063; 77067

== ENCOUNTER 2022-12-25 00:23 | Outpatient (CLI) | payer BC, SELFPAY ==
--- NOTE | 2022-12-25 | DI.US_ITS ---
Exam(s) MG MAMMO SCREEN CALL BACK UNI US BREAST LT LIMITED EXAM: MG MAMMO SCREEN CALL BACK UNI and U/S breast LT limited CLINICAL HISTORY: CLUSTER CALCIFICATIONS LEFT BREAST ABNL MAMMO. TECHNIQUE: Craniocaudal and mediolateral oblique Full Field Digital Mammography views of the left br east with Computer Aided Diagnosis followed by Tomosynthesis and left breast ultrasound. COMPARISON: Comparison is made with prior examinations. FINDINGS: Mammography/Tomosynthesis: Masses/Architectural Distortion: The asymmetric density in the more medial left breast on the cranioc audad view does not persist on the additional views. Microcalcifictions: There is again seen a cluster of microcalcifications in the medial left breast at about 9 o'clock. There does appear to be associated spiculation. Skin Thickening/Nipple Retraction: None. Limited left breast US: Echotexture: Normal appearance of the glandular tissue. Shadowing: No suspicious foci. Cyst: Small cysts are seen. The largest is at the 6 o'clock position 4 cm from the nipple and measur es 1.1 cm. Solid lesions: None seen. Ductal dilation: None. IMPRESSION: 1. New cluster of microcalcifications in the medial left breast with associated spiculation. 2. Biopsy is recommended for further evaluation. 3. Findings were discussed with the patient and Angela Chinchilla at 11:35 a.m. on 12/25/2022. BI-RADS Category 5 - Highly Suggestive of Malignancy: Biopsy recommended Breast Density - Category C - Heterogeneously dense Breast density Category C or D implies that the patient has dense breast tissue. Dense breast tissue can make it harder to find cancer on a mammogram. Dense breast tissue is also associated with an incr eased risk of breast cancer. This information about the result of the mammogram report was provided to the patient to raise their awareness. Use this report when you speak with the patient about their risks for breast cancer, which includes their family history. At that time, you may recommend additional screening tests (Ultrasoun d or MRI) as these tests may add significant information. A negative radiographic report should not delay biopsy if a dominant or clinically suspicious mass is present. Up to ten percent of cancers are not identified on mammography. A negative report may reinforce clinical impression. Adenosis and dense breasts may obscure an underlying neoplasm. False positive reports average 6 to 10%. Patient will receive a letter notifying them of these results.
== END 2022-12-25 00:43 ==
LOC: DI 00:23
PROVIDERS: PCP Student in an Organized Health Care Education/Training Program; Visit Provider Student in an Organized Health Care Education/Training Program
DX: R92.1 Mammographic calcification found on diagnostic imaging of breast (principal)
CPT/HCPCS: 76642; 77063; 77067

== ENCOUNTER 2023-02-08 03:06 | Outpatient (CLI) | payer BC, SELFPAY ==
[2023-02-08 15:45] LABS: HCT 35.8 % (36.0-46.0); HGB 12.2 g/dL (11.2-15.7); MCH 32.8 pg (27.0-33.0); MCHC 34.1 % (32.0-36.0); MCV 96 fL (80-95); MPV 9.9 fL (8.0-11.0); Platelet Count 270 10^3/uL (130-400); RBC 3.72 10^6/uL (3.93-5.22); RDW 11.9 % (11.7-14.6); RDW-SD 42.2 fL; WBC 8.41 10^3/uL (4.4-10.8)
[2023-02-08 16:31] LABS: Anion Gap 5.8 mmol/L (3-11); BUN 9 mg/dL (7-18); CO2 29.2 mmol/L (21.0-32.0); CREATININE 0.6 mg/dL (0.55-1.02); Calcium 9.2 mg/dL (8.5-10.1); Chloride 105 mmol/L (98-107); Estimated GFR 112.04 (mL/min/1.73m2); Glucose 114 mg/dL (74-106); Potassium 4.1 mmol/L (3.5-5.1); Sodium 140 mmol/L (136-145); TSH (W/Ref FT4) 0.72 uIU/mL (0.36-3.74)
[2023-02-09 20:11] LABS: T3,Free 3.8 pg/mL (2.8-5.3)
[2023-02-12 15:34] LABS: Lab Add On Test DONE
[2023-02-12 15:53] LABS: FREE T4 1.31 ng/dL (0.76-1.46)
== END 2023-02-08 03:07 | disposition home or self-care (01) ==
LOC: LBO 03:06
PROVIDERS: PCP Student in an Organized Health Care Education/Training Program; Visit Provider Student in an Organized Health Care Education/Training Program
DX: F45.8 Other somatoform disorders; K58.1 Irritable bowel syndrome with constipation; T78.3XXA Angioneurotic edema, initial encounter; Z86.2 Personal history of diseases of the blood and blood-forming organs and certain disorders involving the immune mechanism; E03.9 Hypothyroidism, unspecified; R73.09 Other abnormal glucose
CPT/HCPCS: 36415; 80048; 85027; 84439; 84443; 84481

== ENCOUNTER 2023-02-19 03:40 | Outpatient (CLI) | payer BC, SELFPAY ==
[2023-02-19 14:39] LABS: Abs Immature Grans 0.05 10^3/uL (0.0-0.06); Absolute Basophil Count 0.06 10^3/uL (0.0-0.2); Absolute Monocyte Count 0.56 10^3/uL (0.1-0.8); Absolute Neutrophil Count 7.92 10^3/uL (1.2-6.7); Basophils % 0.6; Eosinophils % 1.9; HCT 37.2 % (36.0-46.0); HGB 12.6 g/dL (11.2-15.7); Immature Grans % 0.5; Lymphocytes % 17.8; MCH 33.2 pg (27.0-33.0); MCHC 33.9 % (32.0-36.0); MCV 98 fL (80-95); MPV 9.6 fL (8.0-11.0); Monocytes % 5.2; Platelet Count 291 10^3/uL (130-400); RBC 3.79 10^6/uL (3.93-5.22); RDW 12.1 % (11.7-14.6); RDW-SD 44.1 fL; WBC 10.69 10^3/uL (4.4-10.8)
[2023-02-19 16:54] LABS: Ferritin 198 ng/mL (8-252)
[2023-02-19 16:57] LABS: Iron 114 ug/dL (50-170); Total Iron Binding Capacity 303 ug/dL (250-450); Transferrin Sat 38 % (15-50)
== END 2023-02-19 03:41 | disposition home or self-care (01) ==
LOC: LBO 03:40
PROVIDERS: PCP Student in an Organized Health Care Education/Training Program; Visit Provider Student in an Organized Health Care Education/Training Program
DX: D64.9 Anemia, unspecified (principal); R53.83 Other fatigue; E05.00 Thyrotoxicosis with diffuse goiter without thyrotoxic crisis or storm; E89.0 Postprocedural hypothyroidism
CPT/HCPCS: 36415; 82728; 83540; 83550; 85025